=== PATIENT | male | born 1950 | race Caucasian/White ===

== ENCOUNTER 2020-01-24 10:42 | Outpatient (CLI) | payer MEDICARE, SELFPAY ==
--- NOTE | ~2020-01-24 | XR_ITS ---
EXAMINATION: XR hip RT min 2V DATE: 01/24/2020 11:00 INDICATION: Right hip pain. TECHNIQUE: 3 views of right hip were obtained. COMPARISON: Right hip radiographs 12/25/2014 FINDINGS: Bone alignment is normal. There is advanced right hip osteoarthritis including flattening o f superior femoral head. No fracture. IMPRESSION: 1. Advanced right hip osteoarthritis. Reviewed, dictated and finalized at location A.
== END 2020-01-24 10:43 | disposition home or self-care (01) ==
LOC: ANHIMG 10:48
PROVIDERS: PCP Family Medicine; Visit Provider Physician Assistant
DX: G89.29 Other chronic pain (principal); M16.11 Unilateral primary osteoarthritis, right hip
CPT/HCPCS: 73502

== ENCOUNTER 2020-02-02 15:06 | Emergency (ER) | payer MEDICARE, SELFPAY ==
[2020-02-02 15:26] VITALS: BP 166/81; PULSE 93; RESP 16; TEMP 37.8; O2SAT 97
--- NOTE | 2020-02-02 15:34 | ED.SKABFB ---
HPI - Skin/Abscess/Foreign Bdy General Chief complaint: Skin/Abscess/Foreign Body Stated complaint: possible insect bite Time Seen by Provider: 02/02/20 15:28 Source: patient and RN notes reviewed History of Present Illness HPI narrative: Patient is a 69-year-old male who presents the urgent care with complaints of a right upper arm redness and infection due to possible bug bite. Patient states that he noticed on , popped it a little bit in the shower and then noticed the enlargement of the redness on Tuesday. Patient states that it is just now traveled to the bicep with some streaking up to the axilla region as of today. Patient denies any fever, chills, nausea, vomiting. Denies of any known trauma. Patient aware of the plan of care. Related Data Home Medications Medication Instructions Recorded Confirmed mirabegron 50 mg tablet,extended 50 mg PO DAILY 08/02/19 release 24 hr Allergies Allergy/AdvReac Type Severity Reaction Status Date / Time No Known Allergies Allergy Unverified 03/29/18 06:28 Review of Systems Review of Systems: Narrative: CONSTITUTIONAL: Denies fever, chills, or sweats. EYES: Denies visual changes, redness, or discharge. ENT: Denies rhinorrhea, congestion, sore throat, or otalgia. CARDIOVASCULAR: Denies chest pain, palpitations, or edema. RESPIRATORY: Denies cough or dyspnea. GASTROINTESTINAL: Denies abdominal pain, nausea, vomiting, or diarrhea. GENITOURINARY: Denies dysuria or hematuria. SKIN: Reports of infected, possible bug bite, to the right upper arm MUSCULOSKELETAL: Denies back pain, joint pain, or myalgia. NEUROLOGIC: Denies headache, numbness, or weakness. All other systems reviewed are negative, except as documented in HPI. PMFSH Social History Social History Smoking status: Never smoker Alcohol intake: never Comments At the time of my signature, I reviewed and agree with the nursing past medical, surgical, social, and family history. There is no relevant family history pertinent to the patient complaint. Exam Narrative: Exam Narrative: GENERAL: This is a well-nourished, well-developed patient, in no apparent distress. HEAD: normocephalic, atraumatic. EYES: PERRL. Sclera clear/white. Vision is grossly intact. EARS: External ears normal NOSE: External nose normal with no obvious nasal discharge, nares without redness, no rhinorrhea. THROAT: Mucous membranes moist NECK: Neck supple SKIN: 15 cm x 7 cm area of erythema and mild edema to the right upper arm with approximately 4 cm streaking towards the axilla. Warm, intact with no suspicious lesions or rash, good texture and turgor. NEURO: awake, alert, and oriented to person, place and time. There were no obvious focal neurologic abnormalities. EXTREMITIES: No clubbing, cyanosis, or edema. N Course Vital Signs Vital signs: Vital Signs Temperature 100.0 F H 02/02/20 15:26 Pulse Rate 93 02/02/20 15:26 Respiratory Rate 16 02/02/20 15:26 Blood Pressure 166/81 H 02/02/20 15:26 Pulse Oximetry 97 02/02/20 15:26 Temperature 100.0 F H 02/02/20 15:26 Pulse Rate 93 02/02/20 15:26 Respiratory Rate 16 02/02/20 15:26 Blood Pressure 166/81 H 02/02/20 15:26 Pulse Oximetry 97 02/02/20 15:26 Reviewed?patient is informed that they may have pre-hypertension or hypertension based on a blood pressure reading in the department. I recommend the patient call the primary care provider listed on their discharge instructions or a physician of their choice this week to arrange follow-up for further evaluation of possible pre-hypertension or hypertension. MDM - Skin/Abscess/Foreign Bdy MDM Narrative Medical decision making narrative: Advised the patient to use ice to the area as needed. Use Tylenol/ibuprofen for low-grade fever and pain. Complete oral antibiotic regimen as prescribed. Make sure to eat and drink with the medication. The area is marked and be aware if it increases in size and you have increas
== END 2020-02-02 15:45 | disposition home or self-care (01) ==
PROVIDERS: Emergency Provider Nurse Practitioner Family; PCP Physician Assistant
DX: L03.113 Cellulitis of right upper limb (principal); I10 Essential (primary) hypertension; E78.00 Pure hypercholesterolemia, unspecified; E11.9 Type 2 diabetes mellitus without complications
CPT/HCPCS: 99213; G0463

== ENCOUNTER 2020-03-18 10:35 | Outpatient (CLI) | payer MEDICARE, SELFPAY ==
--- NOTE | ~2020-03-18 | US_ITS ---
EXAMINATION: US FNA w image guidance DATE: 03/18/2020 11:29 INDICATION: Right parotid mass. TECHNIQUE: The procedure and its benefits, risks, and benefits were discussed with the patient. Risks specifical ly discussed included bleeding. The patient verbalized understanding of the risks and agreed to proce ed. The right face was prepped and draped in the usual sterile manner. 1% lidocaine was used for loc al anesthesia. 5 passes were made with a 25G needle into the lesion. Appropriate needle location wa s documented with continuous sonographic guidance. There were no immediate complications. The patien t understood to call the ordering physician for results after a week and a half and verbalized that u nderstanding. FINDINGS: Grayscale ultrasound images demonstrate needles advanced into a 16 mm mass in superficial right parot id gland for biopsy. IMPRESSION: 1. Ultrasound-guided fine needle aspiration of a mass in superficial right parotid gland. Reviewed, dictated and finalized at location A. IMPRESSION: 1. Ultrasound-guided fine needle aspiration of a mass in superficial right par otid gland.
--- NOTE | ~2020-03-18 | US_ITS ---
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 TECHNIQUE: Multiple grayscale and Doppler ultrasound images of the right face were obtained. COMPARISON: None FINDINGS: There is a 16 x 13 x 15 mm mixed cystic and solid, hypoechoic mass with peripheral calcific ations in superficial right parotid gland. IMPRESSION: 1. 16 mm mass in right parotid gland. The differential diagnosis includes Warthin tumor, benign mixed tumor, and less likely primary neoplasm. Reviewed, dictated and finalized at location A. IMPRESSION: 1. 16 mm mass in right parotid gland. The differential diagnosis includes Warth in tumor, benign mixed tumor, and less likely primary neoplasm.
== END 2020-03-18 10:36 | disposition home or self-care (01) ==
PROVIDERS: PCP Family Medicine; Visit Provider Otolaryngology
DX: D37.030 Neoplasm of uncertain behavior of the parotid salivary glands (principal)
CPT/HCPCS: 10005; 76536; 88173; 88305

== ENCOUNTER 2020-04-15 10:29 | Outpatient (CLI) | payer MEDICARE, SELFPAY ==
--- NOTE | 2020-04-15 10:32 | ECG_ITS ---
Measurements Intervals [place] Rate: 61 P: 38 LA: 168 QRS: 17 QRSD: 107 T: 31 QT: 385 QTc: 389 Interpretive Statements SINUS RHYTHM NONSPECIFIC T-WAVE ABNORMALITY- INFERIOR LEADS BORDERLINE ECG Electronically Signed On 04-15-2020 12:03:18 CDT by Andrew Wahl D.O.
== END 2020-04-15 10:30 | disposition home or self-care (01) ==
PROVIDERS: PCP Physician Assistant; Visit Provider Otolaryngology
DX: I10 Essential (primary) hypertension (principal); R94.31 Abnormal electrocardiogram [ECG] [EKG]
CPT/HCPCS: 93005

== ENCOUNTER 2020-04-18 01:07 | Outpatient (CLI) | payer MEDICARE, SELFPAY ==
[2020-04-18 19:18] LABS: SARS-CoV-2 RNA PCR Negative
== END 2020-04-18 01:08 | disposition home or self-care (01) ==
LOC: ANHCOVIDDT 01:08
PROVIDERS: PCP Physician Assistant; Visit Provider Otolaryngology
DX: Z01.812 Encounter for preprocedural laboratory examination (principal); Z20.828 Contact with and (suspected) exposure to other viral communicable diseases
CPT/HCPCS: 87635; C9803; U0003

== ENCOUNTER 2020-04-21 01:52 | Day surgery (SDC) | payer MEDICARE, SELFPAY ==
[2020-04-11 15:21] VITALS: BMI 28.7
[2020-04-21] VITALS (8 sets, daily range): BP systolic 133–172; BP diastolic 82–96; PULSE 70–89; RESP 11–20; TEMP 36.4–36.9; O2SAT 92–97; BMI 29.2
--- NOTE | 2020-04-21 07:38 | WPDHPUPDATE1 ---
History and Physical Update Update Date/Time: 04/21/20 07:38 History and Physical has been reviewed, including an updated exam of the patient. There are NO changes in the patient's condition. Risks, benefits, and alternatives have been discussed and questions answered. Patient agrees to proceed with procedure.
--- NOTE | 2020-04-21 07:43 | SUR.PREOP ---
0730; PT STATES HE TOOK HIS METOPROLOL 100MG LAST NIGHT USUAL AND TOOK IT AGAIN THIS MORNING AT 0600. VS STABLE. DR METCALF NOTIFIED AND DR ROMERO NOTIFIED.
[2020-04-21] MEDS: LACTATED RINGERS 1,000 ML 30 ML IV CONT ×2 (07:55→13:20)
--- NOTE | 2020-04-21 08:04 | WPDANESEPPF ---
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 Patient Data Age: 70 Gender: M Height: 1.83 m Weight: 96 kg Allergies Allergy/AdvReac Type Severity Reaction Status Date / Time No Known Allergies Allergy Verified 04/21/20 08:02 Home Medications Medication Instructions Recorded Confirmed Type cinnamon bark 500 mg capsule 500 mg PO BID 02/05/20 04/21/20 History ibuprofen 200 mg capsule 400 mg PO Q6H PRN 02/08/20 04/21/20 History C,E,zinc,copper 30-gnwyb2r-uhu 1 cap PO QAM 04/11/20 04/21/20 History [Ocuvite Adult 50 Plus] amlodipine 5 mg PO QAM 04/11/20 04/21/20 History sbwzoaobhyr-foy-ccdphfokt-vitC 1 cap PO BID 04/11/20 04/21/20 History [Glucosamine Complex-MSM] losartan 100 mg PO QAM 04/11/20 04/21/20 History metoprolol succinate 100 mg PO HS 04/11/20 04/21/20 History rosuvastatin 5 mg PO HS 04/11/20 04/21/20 History saw-vit E-sod dvk-paq-rlpu-pyg 1 tablet PO HS 04/11/20 04/21/20 History [Prostate Health] Patient hx anesthesia problems: none Family hx anesthesia problems: none [facility] Past Medical History Medical History (Updated 04/21/20 @ 08:05 by Dinesh Flores DO) Cancer of parotid gland HLD (hyperlipidemia) HTN (hypertension) Thrombocytopenia Social History Social History (Updated 02/08/20 @ 10:28 by Lizabeth Venegas CMA) Smoking status: Never smoker Alcohol intake: never Substance use: never Living arrangements: with family Spiritual care concerns: No Anes - Eval Final PreProcedure Day of Procedure 04/21/20 08:04 Patient weight: overweight Heart: regular rate and rhythm Lungs: clear to auscultation and normal air movement Airway: Mallampati scale class III Neurological: alert and oriented Last oral intake: >/= 8 hours ASA classification: III Emergent: no Anesthetic plan: proceed Anesthesia type and monitoring: general ETT and standard monitoring Informed Consent: The patient's anesthetic plan and its attendant risks and benefits were discussed with the patient/family/POA. Questions were solicited and answers provided to the satisfaction of the patient/family/POA.
--- NOTE | 2020-04-21 08:51 | WPDHPUPDATE1 ---
History and Physical Update Update Date/Time: 04/21/20 08:51 RIGHT superficial parotidectomy. History and Physical has been reviewed, including an updated exam of the patient. There are NO changes in the patient's condition. Risks, benefits, and alternatives have been discussed and questions answered. Patient agrees to proceed with procedure.
[2020-04-21] MEDS: ceFAZolin 2 GM/D5W 50 ML 2 GM/50 ML BAG IVPB (09:17)
[2020-04-21] MEDS: LIDO 1%/EPINEPHRINE 1:100,000 20 ML VIAL 10 ML INFILTRATE (09:47)
--- NOTE | 2020-04-21 13:08 | PM.PROC ---
Procedure Note - Detailed Date of procedure: 04/21/20 Pre-op diagnosis: neoplasm of parotid gland Post-op diagnosis: same Procedure performed: Right superficial parotidectomy with facial nerve dissection Description of procedure: After informed consent was obtained the time out procedure was performed the patient was brought to the operating room placed on the operating table in the supine position. The patient was placed under general endotracheal anesthesia. A modified Tarun incision was marked out in the patient's RIGHT preauricular crease. 1% lidocaine with one 100,000 epinephrine was injected into the marked incision. The patient was prepped and draped in the usual fashion. A #15 scalpel was used to make the skin incision. This was carried down to the level of the greater auricular nerve.this nerve was dissected superiorly up to the patient's earlobe. The preauricular incision was also carried down to the level of the parotid fascia. The underlying tumor was easily palpated. Next the preauricular incision was carried down along the tragal cartilage and the tragal pointer using a fine dissector and bipolar electrocautery. The greater auricular nerve was preserved.? The external jugular vein was sacrificed. The posterior belly of the digastric muscle was identified after retracting the sternocleidomastoid muscle laterally. The main trunk of the facial nerve was identified in its normal anatomic position and preserved. The nerve intraoperative monitor was utilized throughout the case and the facial nerve was confirmed using the prass probe.? Next the facial nerve was dissected laterally to the pes and the upper lobe and lower divisions were identified. The superficial parotid gland containing the tumor was dissected away from the lateral portion of the facial nerve. Once the specimen was passed off the field the wound bed was carefully irrigated using warm saline solution, there is no evidence of any significant bleeding. The upper and lower divisions of the facial nerve were then stimulated at 1 milliamp, and found to have greater than 1000 microvolts of stimulation. The wound was then closed in layers over a? Cayetano drain using 3-0 Vicryl 4-0 Monocryl, and 4-0 and? 5-0 Prolene suture. A fluff dressing along with a jaw bra were then placed on the patient. The Cayetano drain was noted to be holding suction. The patient was then awakened from general anesthesia, extubated and transferred to recovery in stable condition. Anesthesia: GETA Surgeon: Eliecer Main MD Estimated blood loss (mL): 50 Drains: Yes Packing: No Pathology: yes (right superficial parotidectomy) Complications: None Condition: stable Disposition: same day Findings: Right parotid mass, approx 1.5cm in size. 10 Fr drain placed.
== END 2020-04-21 15:55 | disposition home or self-care (01) ==
PROVIDERS: PCP Physician Assistant; Visit Provider Otolaryngology
PROC: (CPT 42410; principal; 2020-04-21 09:15)
DX: D11.0 Benign neoplasm of parotid gland (principal); I10 Essential (primary) hypertension; E78.5 Hyperlipidemia, unspecified; Z79.1 Long term (current) use of non-steroidal anti-inflammatories (NSAID); Z79.899 Other long term (current) drug therapy
CPT/HCPCS: 42420; 88305; 88307; 88311; A9270; J0330; J0690; J1100; J1170; J2405; J2704; J3010; J7120

== ENCOUNTER 2022-04-28 10:07 | Outpatient (CLI) | payer MEDICARE, SELFPAY ==
--- NOTE | ~2022-04-28 | US_ITS ---
EXAMINATION: US venous doppler [facility] DATE: 04/28/2022 10:54 INDICATION: Bilateral lower limb swelling TECHNIQUE: Grayscale ultrasound images without and with compression and Doppler ultrasound images of the bilateral lower extremity veins were obtained. COMPARISON: None. FINDINGS: The visualized portions of right common femoral vein, profunda (deep) femoral vein, femoral vein, pop liteal vein, posterior tibial veins, peroneal veins, gastrocnemius vein and greater saphenous vein ou tflow are patent. The visualized portions of left common femoral vein, profunda femoral vein, femoral vein, popliteal v ein, posterior tibial veins, peroneal veins, gastrocnemius vein and greater saphenous vein outflow ar e patent. IMPRESSION: 1. No deep venous thrombosis in either lower limb. Reviewed, dictated and finalized at location A.
== END 2022-04-28 10:08 | disposition home or self-care (01) ==
PROVIDERS: PCP Family Medicine; Visit Provider Orthopaedic Surgery
DX: R60.0 Localized edema (principal)
CPT/HCPCS: 93970

== ENCOUNTER 2022-04-29 09:46 | Outpatient (CLI) | payer MEDICARE, SELFPAY ==
[2022-04-29 11:20] LABS: Basophils Percent Auto 0.8 % (0.2-1.2); Eosinophils Absolute Auto 0.1 K/mm3 (0-0.3); Eosinophils Percent Auto 2.3 % (0-4.4); Hematocrit 47.4 % (42.0-52.0); Immature Granulocyte Absolute 0.02 K/mm3 (0.00-0.031); Immature Granulocyte Percent A 0.4 % (0-0.5); Lymphocytes Absolute Auto 1.56 K/mm3 (0.9-3.2); Lymphocytes Percent Auto 33.1 % (18.3-44.2); Mean Corpuscular HGB Conc 33.8 g/dl (32-36); Mean Corpuscular Hemoglobin 31.6 pg (26-34); Mean Corpuscular Volume 93.5 fl (80-100); Monocytes Absolute Auto 0.5 K/mm3 (0.1-0.6); Neutrophils Absolute Auto 2.5 K/mm3 (1.3-6.7); Neutrophils Percent Auto 52.4 % (45.5-73.1); Platelet Count Result 102 k/mm3 (150-375); Red Blood Count 5.07 M/mm3 (4.6-6.20); Red Cell Distribution Width 12.8 % (11.5-14.5); White Blood Count 4.7 K/mm3 (4.5-10.0)
[2022-04-29 11:29] LABS: Albumin Level 4.9 g/dL (3.5-5.1); Anion Gap 3 mmol/L (8-16); Blood Urea Nitrogen 15 mg/dL (9-20); Calcium 8.9 mg/dL (8.4-10.2); Carbon Dioxide 33 mmol/L (22-30); Chloride 101 mmol/L (98-107); Estimated Glomerular Filt Rate > 60; Glucose 123 mg/dL (65-110); Potassium 4.1 mmol/L (3.4-5.0); Sodium 137 mmol/L (137-145)
[2022-04-29 12:06] LABS: Urine Cotinine NEGATIVE
== END 2022-04-29 09:47 | disposition home or self-care (01) ==
LOC: ANHSURGERY 09:53
PROVIDERS: PCP Family Medicine; Visit Provider Orthopaedic Surgery
DX: M16.11 Unilateral primary osteoarthritis, right hip (principal); Z01.818 Encounter for other preprocedural examination
CPT/HCPCS: 80048; 80307; 82040; 83036; 85025; 85055; 87070

== ENCOUNTER 2022-06-08 09:04 | Outpatient (CLI) | payer MEDICARE, SELFPAY | END 2022-06-08 09:05 | disposition home or self-care (01) | LOC: ANHSURGERY 09:08 | PROVIDERS: PCP Family Medicine; Visit Provider Orthopaedic Surgery | DX: M16.11 Unilateral primary osteoarthritis, right hip (principal); Z01.818 Encounter for other preprocedural examination | CPT/HCPCS: 36415; 86850; 86900; 86901 ==

== ENCOUNTER 2022-06-14 02:19 | Day surgery (SDC) | payer MEDICARE, SELFPAY ==
[2022-04-29 10:00] VITALS: BMI 31.3
--- NOTE | 2022-04-29 10:26 | PC.NURSE ---
Report to the Outpatient Waiting Room, entrance under the green pavilion located off [facility], at time _0600 on date _05/17/22 . OR Time: __30 . - You and your visitor will be asked to self-screen and do not enter if you have any COVID symptoms. - Only one visitor and NO children visitors are allowed at this time. - The patient visitor is requested to leave or wait in car when not with patient due to restrictions. - A mask is required within the hospital. Patients may have clear liquids (water, carbonated beverages, clear teas, apple juice) until 3 hours prior to surgery with a maximum of 20 ounces. - No food from midnight until time of surgery - Infants may have breast milk until 4 hours before surgery, infant formula 6 hours prior to surgery. - Children will be allowed to drink immediately following surgery. If applicable, please bring a bottle or sippy cup to assist with drinking. Juice, water, soda, and popsicles are readily available. For infants on formula, please bring formula the day of surgery. Pacifiers are allowed. Take the following medications with a SIP of water the morning of surgery: AMLODIPINE, Medications to discontinue per physician _PT STATES __IBUPROFEN 7 DAYS PRE OP __AND ALL VITAMINS AND SUPPLEMENTS 7 DAYS PRE OP PER DR MAO Date to take last dose__05/09/22 Please no make-up, nail persian, hairspray, perfume, deodorant, or body powder the day of surgery. No jewelry (including any body piercings) or valuables the day of surgery, leave them at home. Please take a shower or bath the night before, or the morning of, surgery with an antibacterial soap. Wear comfortable, loose fitting clothing. Children are encouraged to wear pajamas. - Jewelry must be removed prior to entering the operating room. Rings and piercings that are not removed may be cut off. - The hospital will not accept responsibility for valuables. - Please leave all valuables, including medications, at home the day of surgery. If you are going home after surgery, a licensed class a regional drivers must drive you home. - NO public transportation without another adult. - We recommend that an adult stay with you for 24 hours following discharge. - We also recommend that you do not drive, make important decision, drink alcoholic beverages, or take any drugs that were not prescribed by your health care provider for at least 24 hours after your discharge time. For Pediatric surgeries, we recommend two adults accompany the child home (only one inside the building at this time). Follow any additional instructions given to you from your surgeon. If you or anyone in your household have experienced Covid symptoms in the past week, please notify your surgeon or the nurse liaison at the phone number below for possible testing. VERBAL AND WRITTEN instructions given to PATIENT AND SPOUSE JUDIT and asked if any additional questions and then verbalized understanding. Patient advised to call surgeon office or pre surgery nurse liaison [phone] if any additional questions.
[2022-04-29 10:58] VITALS: BP 163/78; PULSE 62; RESP 18; TEMP 37.3; O2SAT 98
--- NOTE | 2022-05-14 13:01 | PM.IMHP ---
H&P: HPI History of Present Illness Date/Time: 05/14/22 13:01 Chief Complaint: Right hip DJD Narrative: 72-year-old male patient of Dr. Malloy presents today for a right anterior total arthroplasty. He has been having progressively worsening symptoms in his right hip. He has advanced arthritis in the right hip with collapse of the femoral head. Pain in the hip FX 1 daily basis and is keeping him from activities. Patient feels this point is ready proceed with total hip arthroplasty rather continue nonsurgical treatment Review of Systems Review of Systems: All systems reviewed & are unremarkable except as noted in HPI and below PMFSH Past Medical History Medical History Cancer of parotid gland HLD (hyperlipidemia) HTN (hypertension) Thrombocytopenia Social History Social History Smoking status: Never smoker Additional smoking assessment comments: DENIES ANY FORM OF TOBACCO USE Alcohol intake: never Substance use: never Gender identity (if verbalized by the patient): Male Sexual Orientation (if Verbalized by the Patient): Straight or Heterosexual Spiritual care concerns: No Meds Home Medications and Allergies Home Medications Medication Instructions Recorded Confirmed Type cinnamon bark 500 mg capsule 500 mg PO BID 02/05/20 04/29/22 History (Cinnamon) ibuprofen 200 mg capsule 400 mg PO Q6H PRN Pain 02/08/20 04/29/22 History cyczxumrfzk-ojn-ueakoadla-vitC 1 cap PO BID 04/11/20 04/29/22 History capsule (Glucosamine Complex-MSM capsule) vit C,E,zinc,copper-rpmcq5o 250 1 cap PO QAM 04/11/20 04/29/22 History mg-lutein 5 mg-zeaxanthin 1 mg capsule (Ocuvite Adult 50 Plus) amlodipine 5 mg tablet 5 mg PO QAM #90 tabs 12/30/21 04/29/22 Rx vibegron 75 mg tablet (Gemtesa) 75 mg PO DAILY #1 tablet 02/23/22 04/29/22 Rx losartan 100 mg tablet 100 mg PO QAM #90 tabs 03/29/22 04/29/22 Rx cholecalciferol (vitamin D3) 25 25 mcg PO 3XW 04/29/22 04/29/22 History mcg (1,000 unit) tablet metoprolol succinate 100 mg See Rx Instructions .Route 05/04/22 Rx tablet,extended release 24 hr .COMPLEX #90 tabs rosuvastatin 5 mg tablet 5 mg PO HS #90 tabs 05/04/22 Rx Allergies Allergy/AdvReac Type Severity Reaction Status Date / Time No Known Allergies Allergy Verified 04/29/22 10:01 Exam Narrative: 72-year-old male alert pleasant. He is 5 ft 10 221 lb his BMI is 31.7. He walks with a moderate limp. He can complains of pain in the anterior lateral hip weight-bearing. In the spine position is a 20 degree flexion contracture of the right hip flexes to 90. Internal rotation is 10? short of neutral external rotation is 35. Stinchfield maneuver causes minimal discomfort. He is nontender over the greater trochanter and has normal abduction strength in the lateral position. Skin around the hip and groin crease are all normal. 2+ dorsalis pedis and post tibial artery pulse palpable. Intact light touch sensation. Resp: Auscultation: clear to auscultation bilaterally Cardio: Rate: regular rate Rhythm: regular rhythm Assessment and Plan Assessment and plan (1) Hip arthritis: Code(s): M16.10 - Unilateral primary osteoarthritis, unspecified hip Status: Acute Plan 72-year-old male who has severe osteoarthritis with flattening of the superior aspect femoral head in the right hip with rather severe symptoms. Patient is miserable and feels ready to proceed with total hip arthroplasty at this point. Surgical procedure as well as the risks and complications were discussed in detail questions were answered and we will proceed. Patient has seen cardiology, he had an echocardiogram done which showed mild left ventricular hypertrophy ejection fraction is 70%. He has been cleared from cardiology standpoint. He will see his primary care doctor for pre-surgical clearance. He will avoid
--- NOTE | 2022-06-04 08:43 | PC.NURSE ---
Report to the Outpatient Waiting Room, entrance under the green pavilion located off [facility], at time _0600 on date __06/14/22 . OR Time: __729 . Time changes happen often and if your time is changed the preop area will call you the afternoon before. - You and your visitor will be asked to self-screen and do not enter if you have any COVID symptoms. - We encourage only one visitor and NO visitors under age 16 are allowed at this time. Your visitor will receive communication by the phone number that is given day of service. - The patient visitor is requested to social distance or may leave the building when not with patient due to restrictions. - A mask is required within the hospital. Patients may have clear liquids (water, carbonated beverages, clear teas, apple juice) until 3 hours prior to surgery with a maximum of 20 ounces. - No food from midnight until time of surgery - Infants may have breast milk until 4 hours before surgery, formula 6 hours prior to surgery. - Children will be allowed to drink immediately following surgery. If applicable, please bring a bottle or sippy cup to assist with drinking. Juice, water, soda, and popsicles are readily available. For infants on formula, please bring formula the day of surgery. Pacifiers are allowed. Take the following medications with a SIP of water the morning of surgery: AMLODIPINE Medications to discontinue per physician PT STATES HOLD IBUPROFEN AND ALL VITAMINS AND SUPPLEMENTS 7 DAYS PRE OP PER DR MAO Date to take last dose____06/06/22 Please no make-up, nail american, hairspray, perfume, deodorant, or body powder the day of surgery. No jewelry (including any body piercings) or valuables the day of surgery, leave them at home. Please take a shower or bath the night before, or the morning of, surgery with an antibacterial soap. Wear comfortable, loose fitting clothing. Children are encouraged to wear pajamas. - Jewelry must be removed prior to entering the operating room. Rings and piercings that are not removed may be cut off. - The hospital will not accept responsibility for valuables. - Please leave all valuables, including medications, at home the day of surgery. If you are going home after surgery, a licensed airport shuttle driver must drive you home. - NO public transportation without another adult. - We recommend that an adult stay with you for 24 hours following discharge. - We also recommend that you do not drive, make important decision, drink alcoholic beverages, or take any drugs that were not prescribed by your health care provider for at least 24 hours after your discharge time. Follow any additional instructions given to you from your surgeon. If you or anyone in your household have experienced Covid symptoms in the past week, please notify your surgeon or the nurse liaison at the phone number below for possible testing. Telephone instructions given to _PATIENT and asked if any additional questions and then verbalized understanding. Patient advised to call surgeon office or pre surgery nurse liaison [phone] if any additional questions.
--- NOTE | 2022-06-04 08:54 | PC.NURSE ---
PT STATES NO CHANGE IN HEALTH HX SINCE LAST INTERVIEW ON 04/29/22
--- NOTE | 2022-06-11 08:10 | PM.IMHP ---
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 He has been having pain the better part of a year from the right hip. Most the pain is in the right groin and anterior lateral hip. He has severe osteoarthritis in that hip. He has been putting off surgery as long as possible. At this point is having significant symptoms on a daily basis and is fairly miserable. Feels this point is ready to proceed with total hip arthroplasty rather continue nonsurgical treatment Review of Systems Review of Systems: All systems reviewed & are unremarkable except as noted in HPI and below PMFSH Past Medical History Medical History Cancer of parotid gland HLD (hyperlipidemia) HTN (hypertension) Thrombocytopenia Social History Social History Smoking status: Never smoker Additional smoking assessment comments: DENIES ANY FORM OF TOBACCO USE Alcohol intake: never Substance use: never Gender identity (if verbalized by the patient): Male Sexual Orientation (if Verbalized by the Patient): Straight or Heterosexual Spiritual care concerns: No Meds Home Medications and Allergies Home Medications Medication Instructions Recorded Confirmed Type cinnamon bark 500 mg capsule 500 mg PO BID 02/05/20 06/04/22 History (Cinnamon) ibuprofen 200 mg capsule 400 mg PO Q6H PRN Pain 02/08/20 06/04/22 History wrnsxatdrhr-ute-jfpyhojvg-vitC 1 cap PO BID 04/11/20 06/04/22 History capsule (Glucosamine Complex-MSM capsule) vit C,E,zinc,copper-rvbuw8i 250 1 cap PO QAM 04/11/20 06/04/22 History mg-lutein 5 mg-zeaxanthin 1 mg capsule (Ocuvite Adult 50 Plus) amlodipine 5 mg tablet 5 mg PO QAM #90 tabs 12/30/21 06/04/22 Rx vibegron 75 mg tablet (Gemtesa) 75 mg PO DAILY #1 tablet 02/23/22 06/04/22 Rx losartan 100 mg tablet 100 mg PO QAM #90 tabs 03/29/22 06/04/22 Rx cholecalciferol (vitamin D3) 25 25 mcg PO 3XW 04/29/22 06/04/22 History mcg (1,000 unit) tablet metoprolol succinate 100 mg See Rx Instructions .Route 05/04/22 06/04/22 Rx tablet,extended release 24 hr .COMPLEX #90 tabs rosuvastatin 5 mg tablet 5 mg PO HS #90 tabs 05/04/22 06/04/22 Rx Allergies Allergy/AdvReac Type Severity Reaction Status Date / Time No Known Allergies Allergy Verified 06/04/22 08:41 Exam Narrative: 72-year-old male alert pleasant. He is 5 ft 10 and 221 lb. He walks with a moderate limp due to pain in the right hip. He has a 20 degree flexion contracture of the right hip and only flexes to 90?. Internal rotation is 10? short of neutral, external rotation 35. Stinchfield maneuver causes minimal discomfort. He has no tenderness over the greater trochanter and normal abduction strength in lateral position. Normal sensation light touch to lower extremities. 2+ dorsalis pedis posterior pulse. Resp: Auscultation: clear to auscultation bilaterally Cardio: Rate: regular rate Rhythm: regular rhythm Assessment and Plan Assessment and plan (1) Hip arthritis: Code(s): M16.10 - Unilateral primary osteoarthritis, unspecified hip Status: Acute Plan 72-year-old male who has severe osteoarthritis of the with significant symptoms on a daily basis. Again patient feels this 0.3 proceed with total arthroplasty. Surgical procedure as well as the risks and complications were discussed in detail and all questions were answered and we will proceed. Patient will see his primary care doctor pre-surgical clearance. He will avoid his ibuprofen and any other aspirin products 1 week prior to surgery. Plan to use Eliquis for DVT prophylaxis postoperatively. Patient has seen cardiology has had echo done. It showed mild left ventricular hypertrophy with an ejection fraction o
[2022-06-14] VITALS (18 sets, daily range): BP systolic 132–162; BP diastolic 72–91; PULSE 60–96; RESP 14–20; TEMP 36.2–37.3; O2SAT 95–100
--- NOTE | ~2022-06-14 | XR_ITS ---
EXAMINATION: XR surgery orthopedic DATE: 06/14/2022 11:03 INDICATION: Anterior approach right total hip arthroplasty TECHNIQUE: 2 fluoroscopic images of the right hip were obtained during procedure performed by Dr. lAaina cedillo. Radiologist was not present for the imaging or procedure. The amount of fluoroscopy time used d uring this procedure was 1.0 minutes. COMPARISON: None. FINDINGS: Noncemented right total hip arthroplasty which is in near-anatomic alignment. The acetabular componen t is affixed with at least a single screw. No fracture. A few phleboliths in the right hemipelvis. Ex pected amount of soft tissue gas at the operative bed. IMPRESSION: 1. Expected appearance post right total hip arthroplasty. Reviewed, dictated and finalized at location A.
--- NOTE | ~2022-06-14 | XR_ITS ---
EXAMINATION: XR hip RT 1V w AP pelvis DATE: 06/14/2022 11:24 INDICATION: Total right hip arthroplasty. Postop. TECHNIQUE: An anteroposterior view of the pelvis and single view of right hip were obtained. COMPARISON: Right hip radiographs 01/24/2020 FINDINGS: There is a total right hip arthroplasty in near-anatomic alignment. No fracture. There is m ild left hip osteoarthritis. There is gas in the soft tissues, consistent with recent surgery. IMPRESSION: 1. Total right hip arthroplasty in near-anatomic alignment. Reviewed, dictated and finalized at location B.
[2022-06-14] MEDS: ACETAMINOPHEN 500 MG TABLET 1000 MG PO ×2 (06:30→16:06)
[2022-06-14] MEDS: LACTATED RINGERS 1,000 ML 30 ML IV CONT ×2 (06:38→11:27)
[2022-06-14] MEDS: TRANEXAMIC ACID 1,000MG/ISO100 1,000 MG/100 ML BAG 200 MG IVPB (06:40)
[2022-06-14 06:44] LABS: Glucose Point of Care 142 mg/dl (65-105)
--- NOTE | 2022-06-14 07:03 | WPDHPUPDATE1 ---
History and Physical Update Update Date/Time: 06/14/22 07:03 History and Physical has been reviewed, including an updated exam of the patient. There are NO changes in the patient's condition. Risks, benefits, and alternatives have been discussed and questions answered. Patient agrees to proceed with procedure.
--- NOTE | 2022-06-14 07:24 | WPDANESEPPF ---
Anes - Initial Pre Proc Eval Procedure: Operation Date: 06/14/22 07:30 Proposed Procedures p Right Total Hip Arthroplasty, Anterior Approach - Ozzie Strickland MD Date/Time: 06/14/22 07:24 Surgeon: Ozzie Strickland MD Pre Op Diagnosis: O A Rt Hip Patient Data Age: 72 Gender: M Height: 1.8 m Weight: 99.6 kg Last Vital Signs Temp 98.6 F 06/14/22 06:26 Pulse 75 06/14/22 06:26 Resp 18 06/14/22 06:26 BP 157/84 H 06/14/22 06:26 Pulse Ox 96 06/14/22 06:26 O2 Del Method Room Air 06/14/22 06:26 Allergies Allergy/AdvReac Type Severity Reaction Status Date / Time No Known Allergies Allergy Verified 06/04/22 08:41 Home Medications Medication Instructions Recorded Confirmed Type cinnamon bark 500 mg capsule 500 mg PO BID 02/05/20 06/14/22 History (Cinnamon) ibuprofen 200 mg capsule 400 mg PO Q6H PRN Pain 02/08/20 06/14/22 History yawcmeeoxhh-rzi-atsibsxuq-vitC 1 cap PO BID 04/11/20 06/14/22 History capsule (Glucosamine Complex-MSM capsule) vit C,E,zinc,copper-enomy1l 250 1 cap PO QAM 04/11/20 06/14/22 History mg-lutein 5 mg-zeaxanthin 1 mg capsule (Ocuvite Adult 50 Plus) amlodipine 5 mg tablet 5 mg PO QAM #90 tabs 12/30/21 06/14/22 Rx vibegron 75 mg tablet (Gemtesa) 75 mg PO DAILY #1 tablet 02/23/22 06/14/22 Rx losartan 100 mg tablet 100 mg PO QAM #90 tabs 03/29/22 06/14/22 Rx cholecalciferol (vitamin D3) 25 25 mcg PO 3XW 04/29/22 06/14/22 History mcg (1,000 unit) tablet metoprolol succinate 100 mg See Rx Instructions .Route 05/04/22 06/14/22 Rx tablet,extended release 24 hr .COMPLEX #90 tabs rosuvastatin 5 mg tablet 5 mg PO HS #90 tabs 05/04/22 06/14/22 Rx Laboratory Tests 06/14/22 06:42 POC Capillary Glucose 142 mg/dl H mg/dl (65-105) Patient hx anesthesia problems: none Family hx anesthesia problems: none Results Review: All pre-operative results and documents have been reviewed as part of the pre-operative evaluation. ON LICENSE OF [facility] Past Medical History Medical History Cancer of parotid gland HLD (hyperlipidemia) HTN (hypertension) Thrombocytopenia Social History Social History Smoking status: Never smoker Additional smoking assessment comments: DENIES ANY FORM OF TOBACCO USE Alcohol intake: never Substance use: never Living arrangements: with family Gender identity (if verbalized by the patient): Male Sexual Orientation (if Verbalized by the Patient): Straight or Heterosexual Spiritual care concerns: No Anes - Eval Final PreProcedure Day of Procedure 06/14/22 07:24 Patient weight: obese Heart: regular rate and rhythm Lungs: clear to auscultation Airway: Mallampati scale class III Last oral intake: >/= 8 hours ASA classification: III Emergent: no Anesthetic plan: proceed Anesthesia type and monitoring: general ETT and standard monitoring Results Review: All pre-operative results and documents have been reviewed as part of the pre-operative evaluation. Informed Consent: The patient's anesthetic plan and its attendant risks and benefits were discussed with the patient/family/POA. Questions were solicited and answers provided to the satisfaction of the patient/family/POA.
[2022-06-14] MEDS: ceFAZolin 2 GM/D5W 50 ML 2 GM/50 ML BAG IVPB (07:37)
[2022-06-14] MEDS: ceFAZolin SODIUM 1 GM VIAL 3 GM (08:34)
[2022-06-14] MEDS: ceFAZolin SODIUM 1 GM VIAL 2 GM IV PUSH (10:54)
[2022-06-14] MEDS: TRANEXAMIC ACID 1,000 MG/10 ML AMPUL 1000 MG IV PUSH (10:56)
--- NOTE | 2022-06-14 11:22 | W.PM.PROC2 ---
Procedure Note - Detailed Date of Procedure 06/14/22 Pre-op Diagnosis O A Rt Hip Post-op Diagnosis Same Procedure Performed Right total hip arthroplasty direct anterior approach Surgeon Ozzie Strickland MD [employer] Shakira Description of Procedure Patient was brought to the operating room and general anesthesia was administered. He received 2 g of Ancef weight based vancomycin 1 g of tranexamic acid preoperatively. Soft roll was applied to the feet covered with Coban and boots applied and he was placed on the OSI [place] table right hip prepped draped usual fashion. A 10 cm longitudinal incision was made starting 3 cm lateral to the ASIS. The fascia over the tensor fascia sydnie was exposed and longitudinally incised elevated off the anterior 50% the tensor fascia sydnie muscle. Crossing branches of ascending lateral femoral circumflex vessels were ligated with suture and divided. Retractor was placed anterior to the hip capsule hip abducted internally rotated and the gluteus minimus elevated off the lateral hip capsule. Inverted T capsulotomy was performed. Femoral neck osteotomy made according to preoperative templating. A lateral wedge of femoral neck was excised and the femoral head was eventually extracted after we carefully removed very large osteophytes around the femoral head which kept it from rotating freely. Acetabulum was exposed and residual labrum excised. Hip was externally rotated extended and interval between conjoined tendon and piriformis incised which allowed the piriformis to lip posteriorly. With the leg back in the horizontal position external rotation and traction the acetabulum was prepared. We initially medialized with a 44 to get into the overgrown bone covering the fovea had reamed to 53 mm next. I could see that the very large inferior osteophyte was going to make placement of the cup difficult and so this was removed at this time. We could see that there was also a very large anterior osteophyte which we elected to removed after the cup was fully seated. We reamed up to 57 mm which gave peripheral contact reaming circumferentially. This left a kelly rim of sclerotic bone at the periphery. The cancellous bone centrally was somewhat soft. The 57 trial fit well and we impacted the 58 shell [place] which obtained an excellent press fit and did full fully seat. This was placed at 40? of abduction and anteversion which left the posterior shell proximally flush with the posterior acetabular bone. A single screw was placed in the ilium. Thirty-six inner diameter liner fully seated. We then placed a [place] elevated over over the anterior osteophyte and with half-inch osteotome removed the very large anterior osteophyte we also additionally removed remaining lateral osteophyte and posterior superior osteophyte. Next the leg was externally rotated extended and we broached to a size 9 trialed with the high offset 1.5 and this was just a little bit loose and I could see the broach broached depth was appropriate. We broached up to a size 11 which gave a very tight fit. There was still a little bit of torsional plate with a 10. With the 11 there was no torsional play in the very solid Press-Fit on the broach was achieved we trialed with a 1.5 and this under fluoro recreated our preoperative plan for restoring proper leg length and offset. We calcar planed and inserted the size 11 high offset Actis stem which came to rest on the calcar with full seating. No cracks in the bone noted. The 1.5 x 36 ceramic head was placed on the trunnion the hip reduced and stability confirmed to be appropriate with ample shock but no instability. The capsular flaps were reapproximated with 2. Vicryl superiorly. Local anesthetic cocktail injected and again the wound thoroughly irrigated with Ancef solution. Fascia closed with running 1. Vicryl drain in the subcu skin closed with 2 7 his Vicryl and glue. Two additional g of Ancef given time during closure and 1
--- NOTE | 2022-06-14 11:32 | PM.OP ---
Procedure Note - Brief Procedure Note - Brief Date of procedure: 06/14/22 Pre-op diagnosis: O A Rt Hip Right hip DJD Procedure performed: Right anterior total arthroplasty Description of procedure: 72-year-old male who underwent right anterior total hip arthroplasty on 06/14. I was involved in the procedure including positioning the patient on to surgical table. I fiirst assisted through the time of surgery including wound closure. I assisted getting patient to recovery. Total time spent was 4 hours Surgeon: BRUNO Han
[2022-06-14 11:55] LABS: Glucose Point of Care 181 mg/dl (65-105)
--- NOTE | 2022-06-14 13:05 | SUR.PHASEI ---
1305- Cell saver PRBC's of 480mL's completed infusing at this time.
--- NOTE | 2022-06-14 13:28 | ADMGEN ---
This patient, Sid Cuellar, was admitted to Medical Room 341-01. Patient/family oriented to hospital policies and general routines including ID bracelet, bed and alarms, visiting hours, pain management, procedures, bathroom and other care routines, personal items, smoking policy, room service/diet, and visiting hours. Information on how to activate the Rapid Response Team has been discussed. Patient/Family are encouraged to report perceived risks to care and to ask questions if they do not understand what they are told or what they should do.
[2022-06-14] MEDS: LOSARTAN POTASSIUM 100 MG TABLET PO (16:06)
[2022-06-14] MEDS: SENNA/DOCUSATE SODIUM TABLET 2 TAB PO (16:07)
[2022-06-14] MEDS: oxyCODONE HCL (*CRX) 5 MG TAB IR PO ×2 (17:51→21:33)
[2022-06-14] MEDS: ROSUVASTATIN 5 MG TABLET PO (21:33)
[2022-06-14] MEDS: METOPROLOL SUCCINATE EXT REL 100 MG TABCR PO (21:33)
[2022-06-14] MEDS: FAMOTIDINE 20 MG TABLET PO (21:33)
[2022-06-14 23:21] LABS: Glucose Point of Care 171 mg/dl (65-105)
[2022-06-15] MEDS: ACETAMINOPHEN 500 MG TABLET 1000 MG PO ×3 (01:17→11:11)
[2022-06-15] MEDS: oxyCODONE HCL (*CRX) 5 MG TAB IR PO ×3 (01:18→09:58)
[2022-06-15 05:41] VITALS: BP 154/82; PULSE 69; RESP 18; TEMP 36.1; O2SAT 100
--- NOTE | 2022-06-15 06:29 | PM.PNORT ---
Subjective Subjective Date/Time Seen: 06/15/22 06:29Postop day 1 patient is alert. He is afebrile vital signs are stable. Morning labs are not completed yet. His drain is out. He was up walking with physical therapy yesterday and has been up to the restroom overnight several times. Pain is well controlled. Neurovascularly he is intact. Overall patient is comfortable and doing very well. We will plan to have patient work with physical therapy today and after his last IV antibiotic dose will discharge him home. Objective Data Vital Signs Vital Signs: Vital Signs - 24 hr 06/14/22 11:27 06/14/22 11:31 06/14/22 11:45 Temperature 36.9 C 36.3 C L Pulse Rate 74 62 63 Respiratory Rate 20 18 18 Blood Pressure 137/72 134/78 132/73 Pulse Oximetry 98 98 100 Oxygen Delivery Simple Face Mask Simple Face Mask Simple Face Mask Oxygen Flow Rate 8 8 8 06/14/22 12:00 06/14/22 12:05 06/14/22 12:10 Temperature 36.3 C L Pulse Rate 60 63 63 Respiratory Rate 15 14 19 Blood Pressure 147/76 H 139/76 143/75 H Pulse Oximetry 100 100 100 Oxygen Delivery Simple Face Mask Room Air Room Air Oxygen Flow Rate 8 06/14/22 12:25 06/14/22 12:35 06/14/22 12:50 Temperature 36.5 C Pulse Rate 65 67 60 Respiratory Rate 20 18 18 Blood Pressure 148/81 H 153/88 H 156/77 H Pulse Oximetry 99 100 100 Oxygen Delivery Room Air Room Air Room Air Oxygen Flow Rate 06/14/22 13:10 06/14/22 13:35 06/14/22 14:17 Temperature 36.2 C L 37.2 C 37.1 C Pulse Rate 65 66 83 Respiratory Rate 16 14 16 Blood Pressure 153/81 H 162/78 H 161/86 H Pulse Oximetry 99 99 99 Oxygen Delivery Room Air Oxygen Flow Rate 06/14/22 15:00 06/14/22 15:30 06/14/22 17:00 Temperature 36.8 C 37.3 C Pulse Rate 96 84 Respiratory Rate 18 18 Blood Pressure 147/91 H 158/81 H Pulse Oximetry 96 95 Oxygen Delivery Room Air Oxygen Flow Rate 06/14/22 19:37 06/14/22 21:33 06/14/22 23:14 Temperature 36.9 C 36.2 C L Pulse Rate 82 82 82 Respiratory Rate 18 18 Blood Pressure 135/79 154/80 H Pulse Oximetry 95 96 Oxygen Delivery Oxygen Flow Rate 06/15/22 05:41 Temperature 36.1 C L Pulse Rate 69 Respiratory Rate 18 Blood Pressure 154/82 H Pulse Oximetry 100 Oxygen Delivery Oxygen Flow Rate Intake/Output Intake/Output: Intake & Output 06/12/22 06/13/22 06/14/22 06/15/22 23:59 23:59 23:59 23:59 Intake Total 1200 550 Output Total 1050 800 Balance 150 -250 Meds/Results Medications: Active Medications Generic Name Dose Route Start Last Admin Trade Name Freq PRN Reason Stop Dose Admin Acetaminophen 1,000 mg 06/14/22 13:15 06/15/22 05:53 Acetaminophen 500 Mg Tablet PO 1,000 mg Q6HR VALERIY Administration Amlodipine Besylate 5 mg 06/15/22 09:00 Amlodipine Besylate 5 Mg Tablet PO QAM VALERIY Apixaban 2.5 mg 06/15/22 09:00 Apixaban 2.5 Mg Tablet PO Q12HR VALERIY Celecoxib 200 mg 06/15/22 09:00 Celecoxib 200 Mg Capsule PO DAILY VALERIY Cephalexin HCl 500 mg 06/15/22 10:00 Cephalexin 500 Mg Capsule PO Q6HR VALERIY Dextrose 12.5 gm 06/14/22 20:33 Dextrose 50% 25 Gm/50 Ml Syringe IV PUSH PRN PRN Hypoglycemia Protocol Famotidine 20 mg 06/14/22 21:00 06/14/22 21:33 Famotidine 20 Mg Tablet PO 20 mg Q12HR VALERIY Administration Glucagon 1 mg 06/14/22 20:33 Glucagon For Inj 1 Mg Vial IM PRN PRN Hypoglycemia Protocol Glucose 15 gm 06/14/22 20:33 Glucose Oral Gel 15 Gm Of Glucse In 37.5 Gm Tube PO PRN PRN Hypoglycemia Protocol Hydroxyzine HCl 50 mg 06/14/22 13:15 Hydroxyzine Hcl 25 Mg Tablet PO Q4H PRN Itching Vancomycin HCl 1,000 mg in 250 mls @ 250 mls/hr 06/14/22 19:00 06/15/22 06:07 Vancomycin 1,000 Mg/D5w 250 Ml IVPB 06/15/22 07:59 150 mls/hr Q12H VALERIY Administration Cefazolin Sodium 1 gm in 50 mls @ 100 mls/hr 06/14/22 16:00 06/15/22 01:50 Ancef 1 Gm/D5w 50 Ml Pm IVPB 05/29
--- NOTE | 2022-06-15 06:34 | PM.DS ---
DS: Admitting Diagnosis Discharge Date 06/15 Admitting Diagnosis right hip DJD DS: Discharge Diagnosis Discharge Diagnosis (1) Hip arthritis: Code(s): M16.10 - Unilateral primary osteoarthritis, unspecified hip Status: Acute Plan 72-year-old male who underwent right anterior total hip arthroplasty on 06/14. Underwent the procedure without complications. Postoperatively he has been afebrile vital signs are stable. Neurovascularly he is intact. His drain is out. He is weight-bearing as tolerated. He is on Eliquis for DVT prophylaxis. He is on Celebrex for 10 days for heterotopic bone prophylaxis. Patient was up walking with physical therapy the day of surgery in his pain overall is well controlled with scheduled Tylenol as well as oxycodone. Was up overnight to the rest room multiple times as well comfortable. Plan at patient work with therapy on 06/15, if he continues to do well plan to discharge home later that. Will go home on a 12 day course Keflex due to prediabetes. He will be on Senokot and MiraLax as well. Patient was advised any questions or concerns he is to call the office otherwise we will see him in his appointment dates. He had a little bit of soft bone the time of surgery we did check a vitamin D at the time of dictation morning labs not been completed. We will check on these prior to his discharge. If he is low on vitamin-D will supplement this. DS: Summary Hospital Course Hospital Course: Stable Time Spent with Patient Time attestation: Total time spent providing and/or coordinating discharge services: DS: Data Data Completed and Pending Labs on day of discharge: Labs from last 24 hours 06/14/22 06/14/22 06/14/22 23:17 11:52 06:42 POC Capillary Glucose 171 H 181 H 142 H Discharge Plan Discharge Patient Disposition: Home, Self-Care Discharge Instructions: OZZIE STRICKLAND M.D [facility], [address] [address] POST-OPERATIVE DISCHARGE INSTRUCTIONS ANTERIOR TOTAL HIP ARTHROPLASTY 1. Move toes/feet up and down every hour while awake. 2. Be up walking every hour while awake. 3. Use cane in hand opposite of side of hip surgery or walker as comfort allows. Avoid sitting in a chair unless eating, receiving visitors or using the toilet. 4. When resting, lie on back with leg elevated above heart to minimize swelling. Significant swelling could indicate a blood clot and if this occurs, call the office (or go to the ER) to have a venous ultrasound performed. 5. Wound Care: Keep dry sponge on wound for 2 weeks. Use minimal tape. 6. Follow weight bearing status as instructed. 7. May shower with dressing off. Stand Alone Forms: General Discharge Instructions Follow-up/Referrals: Ozzie Strickland MD [Physician] - Keep Reg. Scheduled Appt. Discharge Medications: New celecoxib [Celebrex] 200 mg Capsule 200 mg PO DAILY Qty: 10 0RF polyethylene glycol 3350 [Miralax] 17 gram Powder In Packet 17 g PO QAM Qty: 30 0RF sennosides-docusate sodium [Senokot-S] 8.6-50 mg Tablet 2 tab PO BID Qty: 60 0RF acetaminophen 500 mg Tablet 1,000 mg PO Q6HR Qty: 90 0RF cephalexin 500 mg Capsule 500 mg PO Q6HR Qty: 48 0RF oxycodone 5 mg Tablet 5 mg PO Q4HR Qty: 40 0RF Eliquis 2.5 mg Tablet 2.5 mg PO Q12HR Qty: 69 0RF Continued Gemtesa 75 mg tablet 75 mg PO DAILY Qty: 1 0RF Label Comments: TAKES QPM cholecalciferol (vitamin D3) 25 mcg (1,000 unit) Tablet 25 mcg PO 3XW Ocuvite Adult 50 Plus 250-5-1 mg Capsule 1 cap PO QAM amlodipine 5 mg tablet 5 mg PO QAM Qty: 90 1RF Rx Instructions: Take 1 tablet by mouth once daily losartan 100 mg tablet 100 mg PO QAM Qty: 90 2RF metoprolol succinate 100 mg tablet extended release 24 hr See Rx Instructions .ROUTE .COMPLEX Qty: 90 2RF Dose Instruction: TAKE
[2022-06-15 07:21] LABS: Anion Gap 9 mmol/L (8-16); Blood Urea Nitrogen 12 mg/dL (9-20); Calcium 8.5 mg/dL (8.4-10.2); Carbon Dioxide 30 mmol/L (22-30); Chloride 101 mmol/L (98-107); Estimated CRCL calculation 86 ml/min; Estimated Glomerular Filt Rate > 60; Glucose 141 mg/dL (65-110); Potassium 3.8 mmol/L (3.4-5.0); Sodium 140 mmol/L (137-145)
--- NOTE | 2022-06-15 07:30 | PM.IMCN ---
Assessment and Plan Assessment and plan (1) HTN (hypertension): Code(s): I10 - Essential (primary) hypertension Status: Acute Assessment and Plan: BP slightly elevated at 154/82 Continue home medications Probably slightly high due to the pain Trend bP Adjust therapy as indicated (2) Hip arthritis: Code(s): M16.10 - Unilateral primary osteoarthritis, unspecified hip Status: Acute Assessment and Plan: POD 1 Ortho to manage Pain medications Anti emetics DVT per ortho PT/OT (3) HLD (hyperlipidemia): Code(s): E78.5 - Hyperlipidemia, unspecified Status: Acute Assessment and Plan: Continue home medications (4) Overactive bladder: Code(s): N32.81 - Overactive bladder Status: Acute Assessment and Plan: Hold the gentesa while in the hospital Trend urine output Plan Thank you for allowing us to participate call with any questions HPI Data of Consult Consult date: 06/15/22 Requesting Physician: Ozzie Strickland MD Primary Care Provider: Yaniv Malloy MD Consult Narrative Reason for consult: medical management Narrative: Sid Cuellar is a 72 year old male with a past medical of HTN, HLD, and overactive bladder who is here for an elective hip replacement. Currently he is laying in bed doing ok. He stated that he has been battling this for quite a long time. Currently pain level is a 5/10. He is walking and seems to be doing well with therapy. BP is a bit high however, probably partly related to the pain. Dr. Strickland performed the surgery on 06/14/2022. Currently patient is doing ok. He is stable at this time. He was worried about Gemtesa as he has not been receiving this while in the hospital. Went over the side effects and things to watch for while taking that medications. He denies any chest pain, shortness of breath, nausea, vomiting, diarrhea, constipation, weakness, fatigue, lightheadedness, dizziness, fevers, sweats, or chills. Review of Systems Review of Systems: All systems reviewed & are unremarkable except as noted in HPI and below PMFSH Past Medical History Medical History Cancer of parotid gland HLD (hyperlipidemia) HTN (hypertension) Overactive bladder Thrombocytopenia Surgical History Surgical History History of parotid gland removal Hx of tonsillectomy Social History Social History (Updated 06/15/22 @ 09:08 by YOLANDE Quinteros) Social History: Camilla is the surrogate, he does have one cat and two children. He wished to be a full code at this time Smoking status: Never smoker Additional smoking assessment comments: DENIES ANY FORM OF TOBACCO USE Alcohol intake: never Substance use: never Living arrangements: with family Gender identity (if verbalized by the patient): Male Sexual Orientation (if Verbalized by the Patient): Straight or Heterosexual Spiritual care concerns: No Meds Home Medications and Allergies Home Medications Medication Instructions Recorded Confirmed Type vit C,E,zinc,copper-onszt1d 250 1 cap PO QAM 04/11/20 06/14/22 History mg-lutein 5 mg-zeaxanthin 1 mg capsule (Ocuvite Adult 50 Plus) amlodipine 5 mg tablet 5 mg PO QAM #90 tabs 12/30/21 06/14/22 Rx vibegron 75 mg tablet (Gemtesa) 75 mg PO DAILY #1 tablet 02/23/22 06/14/22 Rx losartan 100 mg tablet 100 mg PO QAM #90 tabs 03/29/22 06/14/22 Rx cholecalciferol (vitamin D3) 25 25 mcg PO 3XW 04/29/22 06/14/22 History mcg (1,000 unit) tablet metoprolol succinate 100 mg See Rx Instructions .Route 05/04/22 06/14/22 Rx tablet,extended release 24 hr .COMPLEX #90 tabs rosuvastatin 5 mg tablet 5 mg PO HS #90 tabs 05/04/22 06/14/22 Rx acetaminophen 500 mg tablet 1,000 mg PO Q6HR #90 tabs 06/15/22 Rx apixaban 2.5 mg tab
[2022-06-15 07:34] LABS: Basophils Percent Auto 0.4 % (0.2-1.2); Eosinophils Percent Auto 0.2 % (0-4.4); Hematocrit 40.2 % (42.0-52.0); Hemoglobin 13.7 g/dL (14.0-18.0); Immature Granulocyte Absolute 0.06 K/mm3 (0.00-0.031); Immature Granulocyte Percent A 0.6 % (0-0.5); Immature Platelet Fraction Pct 11.8 % (0.9-11.2); Lymphocytes Absolute Auto 1.85 K/mm3 (0.9-3.2); Lymphocytes Percent Auto 17.3 % (18.3-44.2); Mean Corpuscular HGB Conc 34.1 g/dl (32-36); Mean Corpuscular Hemoglobin 32.3 pg (26-34); Mean Corpuscular Volume 94.8 fl (80-100); Mean Platelet Volume 11.9 fl (7.4-10.4); Monocytes Absolute Auto 1.3 K/mm3 (0.1-0.6); Monocytes Percent Auto 12.5 % (2.6-8.5); Neutrophils Absolute Auto 7.4 K/mm3 (1.3-6.7); Platelet Count Result 90 k/mm3 (150-375); Red Blood Count 4.24 M/mm3 (4.6-6.20); Red Cell Distribution Width 12.9 % (11.5-14.5); White Blood Count 10.7 K/mm3 (4.5-10.0)
[2022-06-15 07:40] LABS: Vitamin D 25 Hydroxy 30.5 ng/mL
[2022-06-15 08:23] LABS: Glucose Point of Care 133 mg/dl (65-105)
[2022-06-15] MEDS: LOSARTAN POTASSIUM 100 MG TABLET PO (09:58)
[2022-06-15] MEDS: APIXABAN 2.5 MG TABLET PO (09:58)
[2022-06-15] MEDS: amLODIPine BESYLATE 5 MG TABLET PO (09:58)
[2022-06-15] MEDS: CELECOXIB 200 MG CAPSULE PO (09:58)
[2022-06-15] MEDS: SENNA/DOCUSATE SODIUM TABLET 2 TAB PO (09:59)
--- NOTE | 2022-06-15 10:34 | P.PNAN_ITS ---
Anes - Prog Note Post-Op Date/Time: 06/15/22 09:22 Cardiovascular status: normal Respiratory status: normal Airway patency: baseline Mental status: baseline Post-Op hydration status: normal Vital Signs: Last Vital Signs Temp 97 F L 06/15/22 05:41 Pulse 69 06/15/22 05:41 Resp 18 06/15/22 05:41 BP 154/82 H 06/15/22 05:41 Pulse Ox 100 06/15/22 05:41 O2 Del Method Room Air 06/14/22 15:30 O2 Flow Rate 8 06/14/22 12:00 Pain Score (VAS): 0 I/O: Intake & Output 06/14/22 06/15/22 06/15/22 23:59 07:59 15:59 Intake Total 660 550 240 Output Total 750 800 600 Balance -90 -250 -360 Laboratory Tests 06/15/22 07:02 06/15/22 07:02 06/14/22 06/14/22 06/15/22 11:52 23:17 07:02 WBC 10.7 H RBC 4.24 L Hgb 13.7 L Hct 40.2 L MCV 94.8 MCH 32.3 MCHC 34.1 RDW 12.9 Plt Count 90 L MPV 11.9 H Immature Gran % (Auto) 0.6 H Neut % (Auto) 69.0 Lymph % (Auto) 17.3 L [place] % (Auto) 12.5 H Eos % (Auto) 0.2 Baso % (Auto) 0.4 Lymph # (Auto) 1.85 [place] # (Auto) 1.3 H Eos # (Auto) 0.0 Baso # (Auto) 0.0 Abs Immat Gran (auto) 0.06 H Absolute Neuts (auto) 7.4 H Absolute Nucleated RBC 0.0 Nucleated RBC % 0.0 % Immature Plt Fraction 11.8 H Sodium Potassium Chloride Carbon Dioxide Anion Gap BUN Creatinine Estim Creat Clear Calc Estimated GFR Glucose POC Capillary Glucose 181 H 171 H Calcium Vitamin D 25-Hydroxy 06/15/22 06/15/22 06/15/22 07:02 07:02 08:08 WBC RBC Hgb Hct MCV MCH MCHC RDW Plt Count MPV Immature Gran % (Auto) Neut % (Auto) Lymph % (Auto) [place] % (Auto) Eos % (Auto) Baso % (Auto) Lymph # (Auto) [place] # (Auto) Eos # (Auto) Baso # (Auto) Abs Immat Gran (auto) Absolute Neuts (auto) Absolute Nucleated RBC Nucleated RBC % % Immature Plt Fraction Sodium 140 Potassium 3.8 Chloride 101 Carbon Dioxide 30 Anion Gap 9 BUN 12 Creatinine 0.80 Estim Creat Clear Calc 86 Estimated GFR > 60 Glucose 141 H POC Capillary Glucose 133 H Calcium 8.5 Vitamin D 25-Hydroxy 30.5 Post-procedural complaints: other (sore throat) Patient Feedback: Patient satisfied with anesthetic care.
[2022-06-15] MEDS: CEPHALEXIN 500 MG CAPSULE PO (11:11)
[2022-06-15] MEDS: FAMOTIDINE 20 MG TABLET PO (11:11)
[2022-06-15] MEDS: polyethylene glycoL 3350 17 GM POWD.PACK PO (11:11)
== END 2022-06-15 11:30 | disposition home or self-care (01) ==
LOC: ANHSURGERY 06:09 → ANH3MED 13:20
PROVIDERS: Physician Assistant Surgical; PCP Family Medicine; Visit Provider Orthopaedic Surgery
PROC: (CPT 27130; principal; 2022-06-14 07:30)
DX: M16.11 Unilateral primary osteoarthritis, right hip (principal); I10 Essential (primary) hypertension; E78.5 Hyperlipidemia, unspecified; N32.81 Overactive bladder; Z85.89 Personal history of malignant neoplasm of other organs and systems; Z79.01 Long term (current) use of anticoagulants
CPT/HCPCS: 27130; 36415; 73501; 80048; 82306; 82948; 85025; 85055; 97110; 97116; 97161; 97165; 97530; 97535; 99199; A9270; C1713; C1776; J0171; J0690; J1100; J1170; J1885; J2250; J2270; J2405; J2704; J2710; J2795; J3010; J3370; J7030; J7040; J7120